=== PATIENT | female | born 1955 | race African-American/Black ===

== ENCOUNTER 2019-03-08 19:44 | Inpatient (IN) | payer MEDICARE ==
[~2019-03-08] VITALS: Ht 165.1 cm; Wt 74.8 kg
[2019-03-08] MEDS ORDERED: ASPIRIN 81MG TABLET PO ONE (21:45)
[2019-03-08 22:43] LABS: BASOPHILS % 0.5 % (0.0-2.0); EOSINOPHILS % 0.7 % (0.0-5.0); HEMATOCRIT. 33.5 % (36.0-48.0); HEMOGLOBIN. 11.4 g/dL (12.0-16.0); MEAN CORPUSCULAR HEMOGLOBIN 31.7 pg (28.0-32.0); MEAN CORPUSCULAR VOLUME 93.3 fL (81.0-99.0); NEUTROPHILS % 62.8 % (40.0-76.0); PLATELET 195 x1000/uL (130-400); RED BLOOD CELL COUNT 3.59 mill/uL (4.2-5.4); RED CELL DISTRIBUTION WIDTH 14.2 % (11.6-14.6)
[2019-03-08 22:45] LABS: CHLORIDE 108 mEq/L (98-107)
[2019-03-08 22:47] LABS: CLARITY URINE CLEAR (CLEAR); COLOR URINE YELLOW (YELLOW); KETONES URINE NEGATIVE (NEGATIVE); LEUKOCYTE ESTERASE URINE 2+ (NEGATIVE); NITRITE URINE NEGATIVE (NEGATIVE); OCCULT BLOOD URINE NEGATIVE (NEGATIVE); PH URINE 5.5 (4.5-8.0); PROTEIN URINE NEGATIVE (NEGATIVE); UROBILINOGEN URINE 0.2 E.U./dL (0.2-1.0)
[2019-03-08 22:50] LABS: PARTIAL THROMBOPLASTIN TIME 27.8 sec (23.4-31.0); PROTHROMBIN TIME 10.1 sec (9.6-11.0)
[2019-03-08 22:52] LABS: ETHANOL BLOOD < 10 mg/dL
[2019-03-08 22:56] LABS: CREATINE KINASE 182 IU/L (26-192)
[2019-03-08 22:57] LABS: *AMPHETAMINES SCREEN URINE NEGATIVE (NEGATIVE); *BARBITURATES SCREEN URINE NEGATIVE (NEGATIVE); *BENZODIAZEPINES SCREEN URINE NEGATIVE (NEGATIVE); *COCAINE SCREEN URINE NEGATIVE (NEGATIVE); METHADONE URINE SCREEN NEGATIVE (NEGATIVE); OPIATES URINE SCREEN NEGATIVE (NEGATIVE)
[2019-03-08 22:58] LABS: CANNABINOID URINE SCREEN NEGATIVE (NEGATIVE); PHENCYCLIDINE URINE SCREEN NEGATIVE (NEGATIVE)
[2019-03-08 23:00] LABS: CREATINE KINASE MB FRACTION < 1.0 ng/mL (0.5-3.6)
[2019-03-08] MEDS ORDERED: POTASSIUM CHLORIDE 20MEQ TABLET SR PO ONE (23:15)
[2019-03-08] MEDS ORDERED: CEFTRIAXONE 1 G PREMIX 50 ML IV ONE (23:15)
[2019-03-09] MEDS ORDERED: CLONIDINE 0.1MG TABLET PO PRN (07:15)
[2019-03-09] MEDS ORDERED: DOCUSATE SODIUM 100MG CAPSULE PO PRN (07:15)
[2019-03-09] MEDS ORDERED: MORPHINE SULFATE 2 MG/ML CPJ (NOT FOR IM USE) IV PRN (07:15)
[2019-03-09] MEDS ORDERED: ONDANSETRON HCL 4MG/2ML INJ IV PRN (07:15)
[2019-03-09] MEDS ORDERED: ACETAMINOPHEN 325MG TABLET PO PRN (07:15)
[2019-03-09] MEDS ORDERED: HYDROCODONE/ACETAMINOPHEN 5/325MG TABLET PO PRN (07:15)
[2019-03-09 08:54] VITALS: BP_SYST 140; BP_SYST 146; BP_DIAS 60
[2019-03-09] MEDS: ENOXAPARIN 40MG/0.4ML SYR SUBCUT SCH (09:25)
[2019-03-09] MEDS: ASPIRIN 81MG EC TABLET PO SCH (09:26)
[2019-03-09] MEDS: AMLODIPINE 10MG TABLET PO SCH (09:26)
[2019-03-09] MEDS: LEVOTHYROXINE SODIUM 88MCG TABLET PO SCH (11:47)
[2019-03-09 11:54] VITALS: BP 136/72
[2019-03-09] MEDS ORDERED: CHOL100022 MT (15:02)
[2019-03-09] MEDS ORDERED: LEVO88TA7 MT (15:02)
[2019-03-09 16:00] VITALS: BP 120/65
[2019-03-09] MEDS ORDERED: PNEUMOCOCCAL 23-VAL P-SAC VAC 0.5 ML IM ONE (16:00)
[2019-03-09 17:21] LABS: CREATINE KINASE 143 IU/L (26-192)
[2019-03-09 20:00] VITALS: BP 126/70
[2019-03-09] MEDS ORDERED: ATORVASTATIN CALCIUM 20MG TABLET PO SCH (21:00)
[2019-03-10] VITALS: BP 128/69
[2019-03-10 01:44] LABS: CREATINE KINASE 114 IU/L (26-192)
[2019-03-10 04:00] VITALS: BP 110/52
[2019-03-10] MEDS: LEVOTHYROXINE SODIUM 88MCG TABLET PO SCH (06:34)
[2019-03-10 07:45] LABS: BASOPHILS % 0.7 % (0.0-2.0); EOSINOPHILS % 0.8 % (0.0-5.0); HEMATOCRIT. 34.7 % (36.0-48.0); HEMOGLOBIN. 11.5 g/dL (12.0-16.0); LYMPHOCYTES % 29.2 % (20.0-50.0); MEAN CORPUSCULAR HEMOGLOBIN 31.1 pg (28.0-32.0); MEAN CORPUSCULAR VOLUME 93.6 fL (81.0-99.0); MEAN PLATELET VOLUME 9.8 fl (7.4-10.4); MONOCYTES % 7.1 % (2.0-8.0); NEUTROPHILS % 62.2 % (40.0-76.0); PLATELET 112 x1000/uL (130-400); RED BLOOD CELL COUNT 3.71 mill/uL (4.2-5.4); RED CELL DISTRIBUTION WIDTH 14.3 % (11.6-14.6)
[2019-03-10 08:00] VITALS: BP 114/52
[2019-03-10] MEDS: ASPIRIN 81MG EC TABLET PO SCH (08:37)
[2019-03-10] MEDS: AMLODIPINE 10MG TABLET PO SCH (08:37)
[2019-03-10] MEDS: ENOXAPARIN 40MG/0.4ML SYR SUBCUT SCH (08:37)
[2019-03-10 09:37] LABS: CHLORIDE 112 mEq/L (98-107)
[2019-03-10 09:58] LABS: HDL CHOLESTEROL 40 mg/dL (40-59); LDL CHOLESTEROL 113 mg/dL (5-100)
[2019-03-10] MEDS ORDERED: POTASSIUM CHLORIDE 20MEQ TABLET SR PO SCH (10:30)
[2019-03-10] MEDS ORDERED: ATOR20TA MT (10:57)
[2019-03-10 11:01] VITALS: BP 114/52
[2019-03-10 12:01] LABS: *AMPHETAMINES SCREEN URINE NEGATIVE (NEGATIVE)
[2019-03-10 12:02] LABS: *COCAINE SCREEN URINE NEGATIVE (NEGATIVE); CANNABINOID URINE SCREEN NEGATIVE (NEGATIVE); METHADONE URINE SCREEN NEGATIVE (NEGATIVE); OPIATES URINE SCREEN PRESUMTIVE POSITIVE (NEGATIVE); PHENCYCLIDINE URINE SCREEN NEGATIVE (NEGATIVE)
[2019-03-10 12:04] LABS: *BARBITURATES SCREEN URINE NEGATIVE (NEGATIVE); *BENZODIAZEPINES SCREEN URINE NEGATIVE (NEGATIVE)
[2019-03-10 12:17] LABS: T4 FREE 0.9 ng/dL (0.76-1.46)
[2019-03-10 12:28] VITALS: BP 117/53
== END 2019-03-10 13:03 | disposition home or self-care (01) | DRG 313 ==
LOC: ER 19:44 → 8WST 03-09 05:10 → EDBEDREQ 03-09 05:12 → EDBEDREQTM 03-09 05:12 → ENRESERV 03-09 07:21
PROVIDERS: ADMIT Hospitalist; ATTEND Hospitalist
DX: R07.89 Other chest pain (principal); E44.1 Mild protein-calorie malnutrition; I10 Essential (primary) hypertension; E78.00 Pure hypercholesterolemia, unspecified; E03.9 Hypothyroidism, unspecified; E78.5 Hyperlipidemia, unspecified; Z88.8 Allergy status to other drugs, medicaments and biological substances; E87.6 Hypokalemia
CPT/HCPCS: 36415; 71045; 80053; 80061; 80305; 80320; 81003; 82550; 82553; 83036; 83880; 84439; 84443; 84484; 85025; 93005; 93306; 93970; 96365; 99285; J0696; J1650; J2270; G0480